=== PATIENT | male | born 1995 | race Caucasian/White ===

== ENCOUNTER 2016-12-03 16:40 | Emergency (ER) | payer OTHER ==
--- NOTE | ~2016-12-03 | CR142 ---
[facility]. [facility] A Service of [facility] RADIOLOGY TEXT RESULTS PATIENT: YVETTE WISEMAN LOCATION: SED : [birth year] UNIT #: [id number] AGE: [address]: Katie Antunez PAC SEX: M ORDER DR: [id number] [address] [address] [id number] MR#: [id number] Acc #: [id number] NAME: YVETTE WISEMAN : 1995 SEX: M STUDY DATE/TIME: 12/03/2016 16:56 UNIT: SED ROOM: STUDY DESCRIPTION: CR Hand Min 3 Views Rt Attending Physician: Malia Henning Ordering Physician: Malia Henning MEDICAL IMAGING REPORT This report is preliminary unless electronic signature is present. EXAM Right hand 12/03/2016 HISTORY 21-year-old male with right hand pain after hitting wall yesterday. History of bleeding disorder. COMPARISON Right hand, 11/10/2016. FINDINGS 3 views right hand demonstrate no acute fracture or dislocation. There is moderate generalized soft tissue swelling throughout the hand. No radiopaque foreign bodies or soft tissue gas. IMPRESSION Generalized soft tissue swelling throughout the hand. No evidence of acute fracture or dislocation. Dictated by... Toby Kimble M.D. THIS IS AN ELECTRONICALLY VERIFIED REPORT Toby Kimble M.D. at 12/06/2016 2:50 PM JKB/pcl TD: 12/03/2016 21:20 JOB #: [id number] MEDICAL IMAGING REPORT [facility]. [facility] A Service of [facility] RADIOLOGY TEXT RESULTS PATIENT: YVETTE WISEMAN LOCATION: SED : [birth year] UNIT #: [id number] AGE: [address]: Katie Antunez PAC SEX: M ORDER DR: Page 1 of 1
[2016-12-03] MEDS ORDERED: NO MEDICATIONS (16:43)
== END 2016-12-03 18:20 | disposition home or self-care (01) ==
LOC: SED 16:40
DX: S60.221A Contusion of right hand, initial encounter (principal); X50.9XXA Other and unspecified overexertion or strenuous movements or postures, initial encounter; Y93.39 Activity, other involving climbing, rappelling and jumping off
CPT/HCPCS: 29280; 73130; 99283